=== PATIENT | male | born 1960 | race African-American/Black ===

== ENCOUNTER 2021-07-13 10:31 | Emergency (ER) | payer OTHER ==
[~2021-07-13] VITALS: Ht 182.9 cm; Wt 64.0 kg
[2021-07-13 11:52] LABS: BASOPHILS % (AUTO) 0 % (0-1); EOSINOPHILS % (AUTO) 0 % (1-7); LYMPHOCYTES % (AUTO) 17 % (22-44); MEAN CORPUSCULAR HEMOGLOBIN 29.3 pg (27.5-34.5); MEAN CORPUSCULAR HGB CONC 33.3 g/dL (33.2-36.2); MEAN PLATELET VOLUME 8.4 fL (7.4-10.4); MONOCYTES % (AUTO) 9 % (2-9); NEUTROPHILS % (AUTO) 73 % (42-75); PLATELET COUNT 350 x10^3/uL (130-400); RED BLOOD COUNT 4.42 x10^6/uL (4.38-5.82); RED CELL DISTRIBUTION WIDTH 14.3 % (9.4-14.8)
[2021-07-13 12:13] LABS: ALANINE AMINOTRANSFERASE 91 U/L (12-78); ALBUMIN 2.5 g/dL (3.4-5.0); ANION GAP 13 mmol/L (5-15); CALCIUM 8.9 mg/dL (8.5-10.1); CHLORIDE 97 mmol/L (98-107); CREATININE 1.21 mg/dL (0.7-1.3)
[2021-07-13 12:16] LABS: ALKALINE PHOSPHATASE 66 U/L (45-117); BILIRUBIN,TOTAL 0.5 mg/dL (0.2-1.0); TOTAL PROTEIN 9.3 g/dL (6.4-8.2)
--- NOTE | 2021-07-13 16:04 | NUR ---
BUSINESS ADMINISTRATOR: PT TO ROOM, FROM JARETT HUNT
[2021-07-13] MEDS ORDERED: DOXYCYCLINE 100MG TABLET ONE (17:43)
[2021-07-13] MEDS ORDERED: DEXAMETHASONE 4 MG TABLET ONE (17:43)
[2021-07-13 17:47] VITALS: BP 103/70
[2021-07-13] MEDS ORDERED: DOXYCYCLINE 100MG TABLET PO ONE (18:00)
[2021-07-13] MEDS ORDERED: DEXAMETHASONE 4 MG TABLET PO ONE (18:00)
--- NOTE | 2021-07-13 18:07 | NUR ---
PT REC'VD DISCHARGE INSTRUCTIONS AND EDUCATION. PT HAD NO FURTHER QUESTIONS. PT AMBULATED TO DC AREA, STEADY GAIT.
== END 2021-07-13 18:35 | disposition home or self-care (01) ==
LOC: ED 12:00
DX: U07.1 COVID-19 (principal); J18.9 Pneumonia, unspecified organism; R00.0 Tachycardia, unspecified; R50.9 Fever, unspecified; Z87.891 Personal history of nicotine dependence
CPT/HCPCS: 36415; 71045; 80053; 85025; 93005; 99285; U0003; U0005